=== PATIENT | female | born 1975 | race African-American/Black ===

== ENCOUNTER → 2017-10-08 00:51 | Emergency (ER) | payer OTHER ==
[~2017-10-08 00:51] MED LIST: HYDROmorphone INJ* 2 MG/ML CARPUJECT SYRINGE IV SLOW PU ONE; Metoclopramide IV* 5 MG/ML 2 ML VIAL IV ONE; NS 0.9% 1000 ML* 1,000 ML IV ONE
[2017-10-08 02:12] LABS: ABS Basophils 0 10^3/ul (0-0.2); ABS Eosinophils 0.2 10^3/ul (0-0.6); ABS Lymphocytes 2.1 10^3/ul (1.0-4.8); ABS Monocytes 0.7 10^3/ul (0-0.8); ABS Neutrophils 2.6 10^3/ul (1.5-7.7); ABS Nucleated RBC 0 10^3/ul; Eosinophil % 4.1 % (0-6); Hematocrit 34 % (35-47); Hemoglobin 11.1 g/dl (12.0-16.0); Lymphocyte % 36.4 % (25-47); Mean Corpuscular HGB Conc 33 g/dl (31-36); Mean Corpuscular Hemoglobin 24 pg (27-31); Mean Corpuscular Volume 75 fL (80-97); Mean Platelet Volume 7.7 um3 (7.4-10.4); Nucleated Red Blood Cells % 0.1; Platelet Count 301 10^3/ul (150-450); Red Blood Count 4.57 10^6/ul (4.0-5.4); Red Cell Distribution Width 17 % (10.5-15); White Blood Count 5.7 10^3/ul (3.5-10.8)
[2017-10-08 02:18] LABS: INR 0.99 (0.77-1.02)
[2017-10-08 02:29] LABS: EGFR Non-African American 64.5 (>60)
[2017-10-08 02:38] LABS: Urine Appearance Clear; Urine Blood Negative (Negative); Urine Color Straw; Urine Ketones Negative (Negative); Urine Protein Negative (Negative); Urine Specific Gravity 1.008 (1.010-1.030); Urine Urobilinogen Negative (Negative)
[2017-10-08 03:22] VITALS: BP 102/66
--- NOTE | 2017-10-08 03:38 | ED ---
Emerald Portillo Nilda, scribed for Dennis Palacios MD on 10/08/17 at 0131 . Abdominal Pain/Female - HPI Summary HPI Summary: This patient is a 42 year old F presenting to [facility] with a chief complaint of constant RUQ pain since 2.5 weeks ago which has worsened the past 3 nights, noting it wakes me up and makes me yelp. The patient rates the pain 6/10 in severity. Symptoms aggravated and alleviated by nothing. Pt states food does not worsen pain. Patient reports intermittent dizziness, YAP, and nausea, but denies vomiting, and shoulder pain. Pt states she was recovering from a cold weeks ago. Last BM 2 hours ago. PSHx , hernia repair, and tumor removal. - History of Current Complaint Chief Complaint: EDAbdPain Stated Complaint: ABD PAIN Time Seen by Provider: 10/08/17 01:20 Hx Obtained From: Patient Onset/Duration: Sudden Onset, Lasting Weeks, Still Present Timing: Constant Severity Currently: Moderate Pain Intensity: 6 Pain Scale Used: 0-10 Numeric Location: Discrete At: RUQ Radiates: No Aggravating Factor(s): Nothing Alleviating Factor(s): Nothing Associated Signs and Symptoms: Positive: Other: - intermittent dizziness, YAP, and nausea, but denies vomiting, and shoulder pain. Allergies/Adverse Reactions: Allergies Allergy/AdvReac Type Severity Reaction Status Date / Time erythromycin base Allergy Severe Anaphylatic Verified 10/08/17 00:58 Shock morphine Allergy Itching Verified 10/08/17 00:58 Penicillins AdvReac See Comment Verified 10/08/17 00:58 Home Medications: Home Medications Aspirin 81 mg CHEW TAB* [Aspirin Low Dose TAB*] 81 mg PO DAILY 10/08/17 [ History Confirmed 10/08/17] Cetirizine* [ZyrTEC 10 MG TAB*] 10 mg PO DAILY 10/08/17 [History Confirmed 10/08] Norethindrone [Norethindrone] 0.35 mg PO DAILY 10/08/17 [History Confirmed 10/08] Pantoprazole Sodium [Protonix] 20 mg PO DAILY 10/08/17 [History Confirmed ] PMH/Surg Hx/FS Hx/Imm Hx Endocrine/Hematology History: Reports: Other Endocrine/Hematological Disorders - parathyroid issues Denies: Hx Diabetes Cardiovascular History: Denies: Hx Hypertension History: Denies: Hx Renal Disease - Surgical History Surgery Procedure, Year, and Place: , hernia repair, tubal - Immunization History Date of Tetanus Vaccine: PT STATES UNSURE Date of Influenza Vaccine: NONE Infectious Disease History: No Infectious Disease History: Denies: Traveled Outside the [place] in Last 30 Days - Family History Known Family History: Positive: Diabetes - Social History Alcohol Use: None Hx Substance Use: No Substance Use Type: Reports: None Hx Tobacco Use: No Smoking Status (MU): Never Smoked Tobacco Review of Systems Positive: Abdominal Pain - RUQ, Nausea. Negative: Vomiting Positive: Other - shoulder pain Neurological: Other - dizziness Positive: Headache All Other Systems Reviewed And Are Negative: Yes Physical Exam - Summary Physical Exam Summary: VITAL SIGNS: Reviewed. GENERAL: Patient is a well-developed and nourished female who is lying comfortable in the stretcher. Patient is not in any acute respiratory distress. HEAD AND FACE: No signs of trauma. No ecchymosis, hematomas or skull depressions. No sinus tenderness. EYES: PERRLA, EOMI x 2, No injected conjunctiva, no nystagmus. EARS: Hearing grossly intact. Ear canals and tympanic membranes are within normal limits. MOUTH: Oropharynx within normal limits. NECK: Supple, trachea is midline, no adenopathy, no JVD, no carotid bruit, no c- spine tenderness, neck with full ROM. CHEST: Symmetric, no tenderness at palpation LUNGS: Clear to auscultation bilaterally. No wheezing or crackles. CVS: Regular rate and rhythm, S1 and S2 present, no murmurs or gallops appreciated. ABDOMEN: Soft, RUQ tenderness. No signs of distention. No rebound no guarding, and no masses palpated. Bowel sounds are normal. EXTREMITIES: FROM in all major joints, no edema, no cyanosis or clubbing. NEURO: Alert and oriented x 3. No acute neurological deficits. Speech is normal and follows commands. SKIN: Dry and warm Triage Information Reviewed: Yes Vital Signs On Initial Exam: Initial Vitals Temp Pulse Resp BP Pulse Ox 98.0 F 90 16 112/80 99 10/08/17 00:52 10/08/17 00:52 10/08/17 00:52 10/08/17 00:52 10/08/17 00:52 Vital Signs Reviewed: Yes Diagnostics - Vital Signs Vital Signs Temp Pulse Resp BP Pulse Ox 10/08/17 00:52 98.0 F 90 16 112/80 99 - Laboratory Result Diagrams: 10/08/17 01:55 10/08/17 01:55 Lab Statement: Any lab studies that have been ordered have been reviewed, and results considered in the medical decision making process. Re-Evaluation - Re-Evaluation First Eval Re-Evaluation Time: 03:05 Comment: reviewed labs with pt. Pt feels better. Abdominal Pain Fem Course/Dx - Course Course Of Treatment: 42 y/o c/o RUQ for 2.5 weeks. Exam reveals RUQ tenderness. No fever. Labs unremarkable. Pt will be D/C with Dx of abd pain and possible biliary colic. She was advised to f/u with PCP and recieve US abd to r/o gall stones. - Diagnoses Provider Diagnoses: Abdominal pain, Biliary colic symptom Discharge - Sign-Out/Discharge Documenting (check all that apply): Discharge - home - Discharge Plan Condition: Stable Disposition: HOME Patient Education Materials: Biliary Colic (ED), Acute Abdominal Pain (ED) Referrals: Viridiana Myers MD [Primary Care Provider] - 1 Day Additional Instructions: Follow up with your primary care physician tomorrow. Get ultrasound of abdomen to rule out gall stones. RETURN TO THE EMERGENCY DEPARTMENT FOR CHANGING OR WORSENING SYMPTOMS. The documentation as recorded by the Emerald blackwood Nilda accurately reflects the service I personally performed and the decisions made by me, Dennis Palacios MD.
== END | disposition home or self-care (01) ==
LOC: ED 00:51
DX: K80.50 Calculus of bile duct without cholangitis or cholecystitis without obstruction (principal); R10.11 Right upper quadrant pain; R42 Dizziness and giddiness; R51 Headache; R11.0 Nausea
CPT/HCPCS: 36415; 80053; 81003; 82150; 83690; 83735; 84702; 85025; 85610; 85730; 86140; 96374; 96375; 99282; J1170; J2765

== ENCOUNTER 2017-10-19 10:30 | Observation (INO) | payer OTHER ==
[2017-10-19] MEDS ORDERED: diPHENhydraMINE IV* 50 MG/ML 1 ml VIAL (BENADRYL) IV ONE ×2 (10:31→14:30)
[2017-10-19] MEDS ORDERED: HYDROmorphone INJ* 1 MG/ML CARPUJECT SYRINGE IV ONE ×2 (10:31→11:27)
[2017-10-19] MEDS ORDERED: Ondansetron INJ* 2 MG/ML VIAL IV ONE (10:31)
[2017-10-19] MEDS ORDERED: HYDROmorphone INJ* 2 MG/ML CARPUJECT SYRINGE ONE (10:43)
--- NOTE | 2017-10-19 10:48 | PN ---
Hospitalist Progress Note Date of Service: 10/19/17 CAT NOTE Ms Shah is a 42yo F who just received her second dose of IV Iron and developed severe right flank/chest pain, reason why CAT was called. On arrival at [facility] patient was in position in a recliner, writhing in pain. Her BP was 148/88 but due to her movements we were not able to get a good reading on the monitor. As she has h/o prior PE, not currently on anticoagulation, decision was made to transfer patient immediately to ED for further w/u. Patient care transferred to Dr. Díaz.
[2017-10-19 10:56] LABS: ABS Basophils 0 10^3/ul (0-0.2); ABS Eosinophils 0.1 10^3/ul (0-0.6); ABS Lymphocytes 2.6 10^3/ul (1.0-4.8); ABS Monocytes 0.6 10^3/ul (0-0.8); ABS Neutrophils 2.2 10^3/ul (1.5-7.7); ABS Nucleated RBC 0 10^3/ul; Eosinophil % 2.4 % (0-6); Hematocrit 35 % (35-47); Hemoglobin 11.2 g/dl (12.0-16.0); Lymphocyte % 46.8 % (25-47); Mean Corpuscular HGB Conc 32 g/dl (31-36); Mean Corpuscular Hemoglobin 24 pg (27-31); Mean Corpuscular Volume 76 fL (80-97); Mean Platelet Volume 7.9 um3 (7.4-10.4); Nucleated Red Blood Cells % 0.1; Platelet Count 310 10^3/ul (150-450); Red Blood Count 4.63 10^6/ul (4.0-5.4); Red Cell Distribution Width 17 % (10.5-15); White Blood Count 5.5 10^3/ul (3.5-10.8)
[2017-10-19 11:03] LABS: Urine Appearance Clear; Urine Blood 1+ (Negative); Urine Color Yellow; Urine Ketones Negative (Negative); Urine Protein Negative (Negative); Urine Urobilinogen Negative (Negative)
--- OUTSIDE RECORDS SUMMARY | 2017-10-19 11:11 | XMS REPORT ---
:1975 External Reference #:[id number] Author Organization [employer] Address [address] [address] Phone [phone] Care Team Providers Name Role Phone Viridiana Myers MD Primary Care Physician Unavailable Payers Type Date Identification Numbers Payment Provider Subscriber Commercial Policy Number: [id number] [employer] Kirstin Shah PayID: [id number] [address] [place] [address] Problems Description No Information Social History Type Date Description Comments Smoking Patient has never smoked Allergies, Adverse Reactions, Alerts Date Description Reaction Status Severity Comments 10/08/2017 Morphine burning active 10/08/2017 Penicillins not effective active 10/08/2017 Erythromycin Anaphylaxis active Medications Medication Date Status Form Strength Qnty SIG Indications Ordering Provider Aspir-[address] 81mg 1 by Unknown 000 mouth every day Zyrtec Allergy 0 Active Tablets 10mg 1 by Unknown 000 mouth every day Norethindrone 0 Active Tablets 0.35mg 1 by Unknown 000 mouth every day Pantoprazole [address] 20mg 1 by Unknown Sodium 000 mouth every day Vital Signs Date Vital Result Comment 10/08/2017 Height 61.5 inches 5'1.50" Weight 180.00 lb Heart Rate 76 /min BP Systolic 118 mmHg BP Diastolic 82 mmHg Respiratory Rate 16 /min Body Temperature 98.8 F BMI (Body Mass Index) 33.5 kg/m2 Results Description No Information Procedures Description No Information Plan of Care 10/08/2017 - Jose Mina, MDR10.11 Right upper quadrant painFollow up:after hida scan
[2017-10-19 11:14] LABS: EGFR Non-African American 64.5 (>60)
--- NOTE | 2017-10-19 11:50 | RAD ---
INDICATION: Right flank pain COMPARISON: September 26, 2014 TECHNIQUE: An AP portable view obtained at 1125 hours is submitted. FINDINGS: Bones/Soft Tissues: There are no acute bony findings. Cardiomediastinal: The cardiomediastinal silhouette is normal. Lungs: There are no infiltrates. Pleura: There are no pleural effusions. Other: None IMPRESSION: NO ACTIVE DISEASE.
[2017-10-19] MEDS ORDERED: Iohexol 350* (CONTRAST) 500 ML MDV IV ONE (12:31)
[2017-10-19] MEDS: NS 0.9% 1000 ML* 2,000 ML IV ONE (12:40)
--- NOTE | 2017-10-19 13:22 | RAD ---
INDICATION: Chest and flank pain. COMPARISON: CT of the abdomen and pelvis June 16, 2017; CT chest/abdomen/pelvis December 16, 2015 TECHNIQUE: CT angiographic source images were obtained from the thoracic inlet to the symphysis pubis following administration of intravenous contrast only. 100 mL Omnipaque 350 was utilized. Coronal and sagittal reconstructed images were acquired. CHEST FINDINGS: Neck/thyroid: The visualized neck to include the thyroid appear normal. Chest wall: There are no acute abnormalities of the bony thorax or chest wall. There is no supraclavicular, infraclavicular, or axillary lymphadenopathy. Lungs : There are no pulmonary parenchymal masses or infiltrates. The pulmonary interstitium appears normal. There are no endobronchial lesions. Cardiomediastinal structures: The heart is normal in size. There is no pericardial effusion. There is no evidence of aortic aneurysm or dissection. The pulmonary vessels appear normal. There is no mediastinal or hilar adenopathy. The esophagus appears normal. Pleura : There are no pleural-based masses or effusions. ABDOMINAL/PELVIC FINDINGS: Liver: The liver is normal in size. There are no masses. There is no ductal dilatation. Gallbladder: There are no calcified gallstones. There is no evidence of wall thickening or pericholecystic fluid. Spleen: The spleen is normal in size. There are no masses. Pancreas: There is no evidence of pancreatic mass or ductal dilatation. Adrenal glands: There is no evidence of adrenal mass. Kidneys: The kidneys are normal in size and position. There are prompt nephrograms and there is prompt excretion bilaterally. There are no renal parenchymal masses. There is no evidence of nephrolithiasis. Adenopathy: There is no evidence of adenopathy by size criteria. Fluid collections: There is trace free fluid in the cul-de-sac. Vessels:The aorta and IVC appear normal GI tract: There are no acute CT bowel findings. There is no obstruction. The stomach and small bowel appear normal. The lower GI tract is normal. The cecum, ileocecal valve, and terminal ileum appear normal. Evaluation appendix is mildly limited. No definitive appendiceal abnormalities are seen. Pelvic organs: The uterus and adnexa appear normal Bladder: There are no bladder masses. Abdominal and pelvic soft tissues: The extraperitoneal abdominal and pelvic soft tissues appear normal.. Osseous structures: There are no acute osseous findings. IMPRESSION: NO ACUTE CT FINDINGS OF THE CHEST. NO EVIDENCE OF ANEURYSM, DISSECTION, OR PULMONARY EMBOLUS. NO DEFINITIVE MASS OR INFLAMMATORY CHANGES IN THE ABDOMEN OR PELVIS
[2017-10-19] MEDS ORDERED: oxyCODONE/Acetamin 5/325 MG* TAB PO PRN (14:43)
[2017-10-19] MEDS ORDERED: Acetaminophen TAB* 325 MG PO PRN (14:43)
[2017-10-19] MEDS ORDERED: Ondansetron INJ* 2 MG/ML VIAL IV PRN (14:43)
[2017-10-19] MEDS ORDERED: Magnesium Hydroxide LIQ* 30 ML UDC PO PRN (14:43)
--- NOTE | 2017-10-19 16:13 | ED ---
Jake Portillo Thomas, scribed for Jamal Shi MD on 10/19/17 at 1039 . Abdominal Pain/Female - HPI Summary HPI Summary: The patient is a 42 year old female brought over from the Heme/Onc department. She complains of severe sudden-onset right flank pain that began 30 minutes after an iron infusion. - History of Current Complaint Stated Complaint: CAT CALL Time Seen by Provider: 10/19/17 10:31 Hx Obtained From: Patient Onset/Duration: Sudden Onset, Lasting Minutes, Still Present Timing: Constant Severity Currently: Severe Location: Flank - right Aggravating Factor(s): Nothing Alleviating Factor(s): Nothing Associated Signs and Symptoms: Positive: Negative - epistaxis Allergies/Adverse Reactions: Allergies Allergy/AdvReac Type Severity Reaction Status Date / Time erythromycin base Allergy Severe Anaphylatic Verified 10/08/17 00:58 Shock morphine Allergy Intermediate Itching Verified 10/08/17 07:16 Penicillins AdvReac Mild See Comment Verified 10/08/17 07:16 PMH/Surg Hx/FS Hx/Imm Hx Endocrine/Hematology History: Reports: Other Endocrine/Hematological Disorders - parathyroid issues Denies: Hx Diabetes Cardiovascular History: Denies: Hx Hypertension History: Denies: Hx Renal Disease - Surgical History Surgery Procedure, Year, and Place: , hernia repair, tubal - Immunization History Date of Tetanus Vaccine: PT STATES UNSURE Date of Influenza Vaccine: NONE - Family History Known Family History: Positive: Diabetes - Social History Alcohol Use: None Hx Substance Use: No Substance Use Type: Reports: None Hx Tobacco Use: No Smoking Status (MU): Never Smoked Tobacco Review of Systems Negative: Epistaxis Positive: flank pain - right All Other Systems Reviewed And Are Negative: Yes Physical Exam - Summary Physical Exam Summary: General: well-appearing, no pain distress Skin: warm, color reflects adequate perfusion, dry Head: normal Eyes: EOMI, TEENA ENT: normal Neck: supple, nontender Respiratory: CTA, breath sounds present Cardiovascular: RRR Abdomen: soft, nontender Bowel: present Musculoskeletal: normal, strength/ROM intact Neurological: normal, sensory/motor intact, A&O x3 Psychological: affect/mood appropriate Triage Information Reviewed: Yes Vital Signs On Initial Exam: Initial Vitals BP 120/56 10/19/17 10:41 Vital Signs Reviewed: Yes Diagnostics - Vital Signs Vital Signs Temp Pulse Resp BP Pulse Ox 10/19/17 14:30 68 11 108/71 99 10/19/17 14:12 74 100/70 100 10/19/17 14:00 77 17 100 10/19/17 13:30 75 15 100 10/19/17 13:05 87 21 100 10/19/17 12:30 78 23 107/59 100 10/19/17 12:00 88 20 109/71 100 10/19/17 11:56 87 26 114/74 98 10/19/17 11:37 24 10/19/17 11:30 181/169 10/19/17 11:05 99 10/19/17 11:00 116 22 167/118 99 10/19/17 10:51 99.1 F 103 20 151/110 98 10/19/17 10:46 30 10/19/17 10:43 108 21 98 10/19/17 10:41 120/56 - Laboratory Lab Results: Lab Results 10/19/17 10/19/17 10/19/17 Range/Units 10:42 10:45 10:45 WBC (3.5-10.8) 10^3/ul RBC (4.0-5.4) 10^6/ul Hgb (12.0-16.0) g/dl Hct (35-47) % MCV (80-97) fL MCH (27-31) pg MCHC (31-36) g/dl RDW (10.5-15) % Plt Count (150-450) 10^3/ul MPV (7.4-10.4) um3 Neut % (Auto) (38-83) % Lymph % (Auto) (25-47) % [place] % (Auto) (0-7) % Eos % (Auto) (0-6) % Baso % (Auto) (0-2) % Absolute Neuts (auto) (1.5-7.7) 10^3/ul Absolute Lymphs (auto) (1.0-4.8) 10^3/ul Absolute Monos (auto) (0-0.8) 10^3/ul Absolute Eos (auto) (0-0.6) 10^3/ul Absolute Basos (auto) (0-0.2) 10^3/ul Absolute Nucleated RBC 10^3/ul Nucleated RBC % INR (Anticoag Therapy) 1.00 (0.77-1.02) APTT 38.3 H (26.0-36.3) seconds D-Dimer, Quantitative < 200 (Less Than 230) ng/mL Sodium (139-145) mmol/L Potassium (3.5-5.0) mmol/L Chloride (101-111) mmol/L Carbon Dioxide (22-32) mmol/L Anion Gap (2-11) mmol/L BUN (6-24) mg/dL Creatinine (0.51-0.95) mg/dL Est GFR ( Amer) (>60) Est GFR (Non-Af Amer) (>60) BUN/Creatinine Ratio (8-20) Glucose (70-100) mg/dL Lactic Acid (0.5-2.0) mmol/L Calcium (8.6-10.3) mg/dL Magnesium (1.9-2.7) mg/dL Total Bilirubin (0.2-1.0) mg/dL AST (13-39) U/L ALT (7-52) U/L Alkaline Phosphatase (34-104) U/L Total Creatine Kinase (10-223) U/L CK-MB (CK-2) (0.6-6.3) ng/mL Troponin I (<0.04) ng/mL C-Reactive Protein (< 5.00) mg/L B-Natriuretic Peptide 7 ( - 100) pg/mL Total Protein (6.4-8.9) g/dL Albumin (3.2-5.2) g/dL Globulin (2-4) g/dL Albumin/Globulin Ratio (1-3) Lipase (11.0-82.0) U/L TSH (0.34-5.60) mcIU/mL Beta HCG, Quant mIU/mL Urine Color Yellow Urine Appearance Clear Urine pH 5.0 (5-9) Ur Specific [place] 1.010 (1.010-1.030) Urine Protein Negative (Negative) Urine Ketones Negative (Negative) Urine Blood 1+ A (Negative) Urine Nitrate Negative (Negative) Urine Bilirubin Negative (Negative) Urine Urobilinogen Negative (Negative) Ur Leukocyte Esterase Negative (Negative) Urine WBC (Auto) Absent (Absent) Urine RBC (Auto) Trace(0-2/hpf) (Absent) Ur Squamous Epith Cells Present A (Absent) Urine Bacteria Absent (Absent) Urine Glucose Negative (Negative) 10/19/17 10/19/17 10/19/17 Range/Units 10:45 10:45 10:45 WBC 5.5 (3.5-10.8) 10^3/ul RBC 4.63 (4.0-5.4) 10^6/ul Hgb 11.2 L (12.0-16.0) g/dl Hct 35 (35-47) % MCV 76 L (80-97) fL MCH 24 L (27-31) pg MCHC 32 (31-36) g/dl RDW 17 H (10.5-15) % Plt Count 310 (150-450) 10^3/ul MPV 7.9 (7.4-10.4) um3 Neut % (Auto) 39.7 (38-83) % Lymph % (Auto) 46.8 (25-47) % [place] % (Auto) 10.6 H (0-7) % Eos % (Auto) 2.4 (0-6) % Baso % (Auto) 0.5 (0-2) % Absolute Neuts (auto) 2.2 (1.5-7.7) 10^3/ul Absolute Lymphs (auto) 2.6 (1.0-4.8) 10^3/ul Absolute Monos (auto) 0.6 (0-0.8) 10^3/ul Absolute Eos (auto) 0.1 (0-0.6) 10^3/ul Absolute Basos (auto) 0 (0-0.2) 10^3/ul Absolute Nucleated RBC 0 10^3/ul Nucleated RBC % 0.1 INR (Anticoag Therapy) (0.77-1.02) APTT (26.0-36.3) seconds D-Dimer, Quantitative (Less Than 230) ng/mL Sodium 137 L (139-145) mmol/L Potassium 4.3 (3.5-5.0) mmol/L Chloride 108 (101-111) mmol/L Carbon Dioxide 24 (22-32) mmol/L Anion Gap 5 (2-11) mmol/L BUN 10 (6-24) mg/dL Creatinine 0.95 (0.51-0.95) mg/dL Est GFR ( Amer) 83.0 (>60) Est GFR (Non-Af Amer) 64.5 (>60) BUN/Creatinine Ratio 10.5 (8-20) Glucose 93 (70-100) mg/dL Lactic Acid 0.9 (0.5-2.0) mmol/L Calcium 9.0 (8.6-10.3) mg/dL Magnesium 1.9 (1.9-2.7) mg/dL Total Bilirubin 0.40 (0.2-1.0) mg/dL AST 15 (13-39) U/L ALT 11 (7-52) U/L Alkaline Phosphatase 40 (34-104) U/L Total Creatine Kinase 204 (10-223) U/L CK-MB (CK-2) 0.6 (0.6-6.3) ng/mL Troponin I 0.00 (<0.04) ng/mL C-Reactive Protein < 1.00 (< 5.00) mg/L B-Natriuretic Peptide ( - 100) pg/mL Total Protein 7.5 (6.4-8.9) g/dL Albumin 4.2 (3.2-5.2) g/dL Globulin 3.3 (2-4) g/dL Albumin/Globulin Ratio 1.3 (1-3) Lipase 21 (11.0-82.0) U/L TSH 4.34 (0.34-5.60) mcIU/mL Beta HCG, Quant < 0.60 mIU/mL Urine Color Urine Appearance Urine pH (5-9) Ur Specific [place] (1.010-1.030) Urine Protein (Negative) Urine Ketones (Negative) Urine Blood (Negative) Urine Nitrate (Negative) Urine Bilirubin (Negative) Urine Urobilinogen (Negative) Ur Leukocyte Esterase (Negative) Urine WBC (Auto) (Absent) Urine RBC (Auto) (Absent) Ur Squamous Epith Cells (Absent) Urine Bacteria (Absent) Urine Glucose (Negative) Result Diagrams: 10/19/17 10:45 10/19/17 10:45 Lab Statement: Any lab studies that have been ordered have been reviewed, and results considered in the medical decision making process. - Radiology CXR Xray Interpretation: No Acute Changes - IMPRESSION: No active disease. Dr. Shi has reviewed this report. Radiology Interpretation Completed By: Radiologist - CT CT CT Interpretation: No Acute Changes - IMPRESSION: NO ACUTE CT FINDINGS OF THE CHEST. NO EVIDENCE OF ANEURYSM, DISSECTION, OR PULMONARY EMBOLUS. NO DEFINITIVE MASS OR INFLAMMATORY CHANGES IN THE ABDOMEN OR PELVIS. Dr. Shi has reviewed this report. CT Interpretation Completed By: Radiologist - EKG 10:37 Cardiac Rate: NL EKG Rhythm: Sinus Rhythm - at 94 BPM Ectopy: None EKG Interpretation: Flippped T waves in III. Flatted T waves in AVF. Abdominal Pain Fem Course/Dx - Course Course Of Treatment: DISCUSSED RESULTS WITH PATIENT. STILL IN PAIN IN ED. DISCUSSED WITH DR ALLEN WHO WILL ADMIT. - Diagnoses Provider Diagnoses: Right flank pain, Right-sided chest pain - Provider Notifications Discussed Care Of Patient With: Albino Allen Time Discussed With Above Provider: 14:00 Instructed by Provider To: Admit As Inpatient Discharge - Sign-Out/Discharge Documenting (check all that apply): Discharge - Discharge Plan Condition: Stable Disposition: ADMITTED TO [facility] - Billing Disposition and Condition Condition: STABLE Disposition: [facility] The documentation as recorded by the Jake blackwood Thomas accurately reflects the service I personally performed and the decisions made by , Jamal Shi MD.
[2017-10-19] MEDS ORDERED: traMADol TAB* 50 MG PO PRN (17:20)
[2017-10-19] MEDS ORDERED: Cyclobenzaprine TAB* 10 MG PO PRN (19:05)
[2017-10-19] MEDS ORDERED: Zolpidem TAB* 10 MG PO SCH (21:00)
--- NOTE | 2017-10-19 22:23 | HP ---
HISTORY AND PHYSICAL: DATE OF ADMISSION: 10/19/17 CHIEF COMPLAINT: Right-sided shoulder to flank pain. IDENTIFICATION: A 42-year-old female with history of pulmonary embolus, receiving IV iron therapy. HISTORY OF PRESENT ILLNESS: Ms. Shah is a 42-year-old female, well known to our practice with iron deficiency anemia. She has not tolerated oral iron and was brought in today for her second treatment of Ferrlecit. She received the first infusion without difficulty. The second infusion was completed without difficulty. She was in the observation period and 30 minutes after completing the infusion, she developed acute right-sided shoulder pain. The pain was 10/ 10 in intensity and she was literally curled over in pain. She was weak and hypoxic after holding her breath because of a spasm. Vital signs remained stable. Suspected drug reaction. She was given Solu-Medrol 125 mg and then Demerol 25 mg without effect. Denied nausea or vomiting. She was reporting shortness of breath. Denied any dizziness, tingling in the hands and feet. CAT team was called and she was brought to the emergency room. She was given additional milligram of Dilaudid and an additional 2 mg of Dilaudid IV. That did improve her pain. Went down to 4 to 5/10. She had a CT scan of the chest, abdomen, and pelvis to look for pulmonary embolus as well as dissection or an acute vascular event. The CT was negative. It was done with contrast, so we did not evaluate for kidney stones. She had blood work in the emergency room including a troponin that was negative. She had P33 and a CBC that was all essentially unremarkable. Contrast scan was done to evaluate for kidney stones. She did have urine that showed +1 blood. While the pain had improved somewhat in the emergency room, she did not feel it was possible to go home, so she is going to be admitted overnight for observation. PAST MEDICAL HISTORY: 1. Endometriosis. 2. Gastroparesis. 3. Pulmonary embolus in 1999 and on oral control pills, 5 months of Coumadin and then stopped. 4. Pituitary adenoma. PAST SURGICAL HISTORY: 1. . 2. Hernia repair. 3. Lipoma removed. 4. Tonsillectomy. MEDICATIONS: 1. Aspirin 81 mg a day. 2. Multivitamin. 3. Pantoprazole. 4. Zyrtec. 5. Norethindrone. ALLERGIES: ERYTHROMYCIN AND MORPHINE causes hives. SOCIAL HISTORY: She is . Four biologic children and three adopted children. Works at [employer]. No smoking. No drinking. REVIEW OF SYSTEMS: As noted above. She does have a history of some chronic abdominal pain and has had multiple GI evaluations in the past. Otherwise, 14- point review of systems was negative. PHYSICAL EXAMINATION VITAL SIGNS: In the emergency room, BP 112/68, pulse 63, saturation 99%, temperature 98.4. HEENT: Mucosa moist. No lesions. No lymphadenopathy. LUNGS: Clear to auscultation. Chest was tender to palpation during her episode of severe pain, improved later. HEART: Regular rate and rhythm. S1, S2. No murmurs, rubs, or gallops. ABDOMEN: Nontender, nondistended. Good bowel sounds. EXTREMITIES: No clubbing, cyanosis or edema. LABORATORY DATA: As noted above. ASSESSMENT AND PLAN: A 42-year-old female with history of chronic abdominal pain, iron deficiency anemia, and pulmonary embolus in the past, who presented with acute right-sided chest pain. She had decompensation in the clinic and there is concern for an acute vascular event. Subsequent evaluation in the emergency room was essentially negative. Pain subsided with Dilaudid. Differential diagnosis includes drug reaction to iron as the most likely cause, muscle or back spasm, there is an underlying chronic pain syndrome. 1. At this point, she will come into the hospital overnight and be monitored with plans to go home tomorrow morning barring additional events. Can be discharged on Tramadol and/or Flexeril 2. No additional iron therapy 3. H/o PE and on progesterone only BC for endometriosis. Will continue with [facility]SA. [id number]/[facility] #: [id number] [facility]ENTERLukasz
[2017-10-20 07:49] VITALS: BP 115/63
[2017-10-20] MEDS ORDERED: Aspirin 81 mg CHEW TAB* 81 MG TAB.CHEW PO SCH (09:00)
[2017-10-20] MEDS ORDERED: Norethindrone (NF) 0.35 MG TAB PO SCH (09:00)
--- NOTE | 2017-10-20 10:00 | PN ---
Progress Note - Progress Note Date of Service: 10/27/17 SOAP: Subjective: []Better today but still some pain. Slept well overnight. Was due for Hida scan today. No nausea. Acetaminophen (Tylenol Tab*) 650 mg PO Q4H PRN PRN Reason: FEVER/PAIN Aspirin (Aspirin 81 Mg Chew Tab*) 81 mg PO DAILY [facility] Last Admin: 10/20/17 09:08 Dose: 81 mg Cyclobenzaprine HCl (Flexeril Tab*) 10 mg PO TID PRN PRN Reason: PAIN Last Admin: 10/19/17 19:54 Dose: 10 mg Magnesium Hydroxide (Milk Of Marvin Liq*) 30 ml PO Q4H PRN PRN Reason: CONSTIPATION Norethindrone (Suki (Nf)) 0.35 mg PO DAILY [facility] Last Admin: 10/20/17 09:08 Dose: Not Given Ondansetron HCl (Zofran Inj*) 4 mg IV Q4H PRN PRN Reason: NAUSEA/VOMITING Last Admin: 10/19/17 19:53 Dose: 4 mg Oxycodone/Acetaminophen (Percocet 5/325 Tab*) 1 tab PO Q4H PRN PRN Reason: Pain Tramadol HCl (Ultram*) 50 mg PO Q6H PRN PRN Reason: PAIN Last Admin: 10/19/17 18:14 Dose: 50 mg Zolpidem Tartrate (Ambien Tab*) 10 mg PO BEDTIME [facility] Last Admin: 10/19/17 20:53 Dose: 10 mg Objective: [] Vital Signs Temp Pulse Resp BP Pulse Ox 98.1 F 71 16 115/63 98 10/20/17 07:26 10/20/17 07:26 10/20/17 07:26 10/20/17 07:26 10/20/17 07:26 HEENT - negative CTA RRR S1S2 Stills some pain to tenderness, palpation right mid T spine. ABD: +BS NT ND and no [facility] Neuro: non focal Assessment: []Appears to have had acute muscle spasm and/or drug reaction to IV iron. Improved today but some residual pain. Flexeril worked better then Tramadol last night. Will send out on Felxeril prn Plan: []1. Discharge home today 2. Follow up 4-6 week in clinic and will re-check CBC 3. Follow up PCP 4. No additional IV iron.
--- NOTE | 2017-10-20 12:55 | RAD ---
INDICATION: Right upper quadrant pain COMPARISON: CT October 19, 2017 TECHNIQUE: Following the administration of 6.2 millicuries of technetium 99m mebrofenin, serial, static, anterior images of the abdomen were obtained at 5 minute increments for a period of one hour. The images were repeated following intravenous administration of 1.63 micrograms of cholecystokinin. FINDINGS: There is prompt uptake of radiopharmaceutical within the liver indicating normal hepatic function. There is prompt visualization of the gallbladder and small bowel indicating patency of the cystic and common ducts. The gallbladder ejection fraction is calculated at 79 percent. This is within normal limits. A normal gallbladder ejection fraction is typically greater than 50%. IMPRESSION: NORMAL STUDY.
--- NOTE | 2017-10-20 14:46 | DS ---
DISCHARGE SUMMARY: DATE OF ADMISSION: 10/19/17 DATE OF DISCHARGE: 10/20/17 ADDENDUM: This is an addendum to history and physical from last night, 23-hour OBV admission. HOSPITAL COURSE: Please see history and physical for details of presentation. She was admitted overnight and then pain subsided. She did receive tramadol, which did not seem to help and then Flexeril 10 mg, which improved her pain. This morning, she had some residual right-sided pain, but it is slowly getting better. Differential diagnosis is acute muscle spam and/or drug reaction to IV iron. The plan will be to discharge on her previous home medications with the addition of Flexeril 10 mg q.8 p.r.n. for pain. DISCHARGE MEDICATIONS: 1. Aspirin 81 mg a day. 2. Multivitamin. 3. Pantoprazole 40 mg a day. 4. Progesterone-only control, norethindrone. 5. Zyrtec p.r.n. SCANS PENDING: She was due for HIDA scan today as an outpatient, we will have the scan done before she goes on today. FOLLOWUP: 1. Will return to our clinic in 4 to 6 weeks with repeat CBC to evaluate iron deficiency. 2. Follow up with PCP for residual back pain, spasm. 3. Follow up with Dr. Vicente for the HIDA scan being done today. 4. Flexeril, sent to her pharmacy. [id number]/[facility] #: [id number] MTDD
== END 2017-10-20 14:40 | disposition home or self-care (01) ==
LOC: ED 10:30 → MED 14:38 → INTOOBSV 14:38
PROVIDERS: ADMIT Internal Medicine Hematology & Oncology; ATTEND Internal Medicine Hematology & Oncology
DX: R10.84 Generalized abdominal pain (principal); R07.9 Chest pain, unspecified; M62.838 Other muscle spasm; Z86.711 Personal history of pulmonary embolism; Z86.39 Personal history of other endocrine, nutritional and metabolic disease; Z79.82 Long term (current) use of aspirin; D50.9 Iron deficiency anemia, unspecified
CPT/HCPCS: 36415; 71045; 71275; 74177; 78227; 80053; 81003; 81015; 82550; 82553; 83605; 83690; 83735; 83880; 84443; 84484; 84702; 85025; 85379; 85610; 85730; 86140; 87040; 93005; 96374; 96375; 99217; 99219; 99285; A9270-GY; A9537; J1170; J1200; J2405; J2805; Q9967

== ENCOUNTER 2019-05-08 20:43 | Emergency (ER) | payer SELFPAY ==
[2019-05-08 21:15] LABS: ABS Eosinophils 0.2 10^3/ul (0-0.6); ABS Lymphocytes 2.4 10^3/ul (1.0-4.8); ABS Monocytes 0.8 10^3/ul (0-0.8); ABS Neutrophils 2.9 10^3/ul (1.5-7.7); Eosinophil % 2.6 %; Hematocrit 32 % (35-47); Hemoglobin 10.5 g/dL (12.0-16.0); Lymphocyte % 37.6 %; Mean Corpuscular HGB Conc 33 g/dL (31-36); Mean Corpuscular Hemoglobin 25 pg (27-31); Mean Corpuscular Volume 75 fL (80-97); Mean Platelet Volume 7.7 fL (7.4-10.4); Nucleated Red Blood Cells % 0.4; Platelet Count 274 10^3/uL (150-450); Red Blood Count 4.28 10^6 /uL (3.70-4.87); Red Cell Distribution Width 16 % (10-15); White Blood Count 6.3 10^3/uL (3.5-10.8)
[2019-05-08] MEDS ORDERED: Iohexol 350* (CONTRAST) 500 ML MDV IV ONE (21:15)
--- NOTE | 2019-05-08 21:20 | ED ---
Abdominal Pain/Female - HPI Summary HPI Summary: Pt is a 44 y/o F presenting to the ED with a chief complaint of pain in her abdomen. She states was riding in her car for about 20 minutes sitting in her seat when she had a warm sensation through her mid-epigastric down to her stomach, which developed into feeling like she needed to have a bowel movement, then it came back up through her mid-epigastric region. The pain has been waxing /waning, she had episodes of numbness in her arms, then legs, then shaking throughout her body. She developed SOB, and notes she has recent dx of PNA. The pain runs through her abd and down the L-side of her body. Pt states she is agreeable with getting a CT with contrast before testing her kidney function, and denies hx of kidney issues. Medications reviewed. Allergies noted. - History of Current Complaint Chief Complaint: EDShortnessOfBreath Stated Complaint: SOB PER PT FRIEND Time Seen by Provider: 05/08/19 20:47 Hx Obtained From: Patient Onset/Duration: Sudden Onset, Lasting Hours, Still Present Timing: Hours Severity Initially: Mild Severity Currently: Severe Pain Intensity: 0 Location: Epigastric Radiates: Yes Radiates to: LLQ, RLQ Character: Burning, Cramping Aggravating Factor(s): Nothing Alleviating Factor(s): Nothing Associated Signs and Symptoms: Positive: Negative Allergies/Adverse Reactions: Allergies Allergy/AdvReac Type Severity Reaction Status Date / Time erythromycin base Allergy Severe Anaphylatic Verified 05/08/19 20:47 Shock morphine Allergy Intermediate Itching Verified 05/08/19 20:47 Penicillins AdvReac Mild See Comment Verified 05/08/19 20:47 PMH/Surg Hx/FS Hx/Imm Hx Previously Healthy: Yes Endocrine/Hematology History: Reports: Other Endocrine/Hematological Disorders - parathyroid issues Denies: Hx Diabetes Cardiovascular History: Denies: Hx Hypertension History: Denies: Hx Renal Disease Sensory History: Reports: Hx Contacts or Glasses Denies: Hx Hearing Aid Opthamlomology History: Reports: Hx Contacts or Glasses - Surgical History Surgery Procedure, Year, and Place: , hernia repair, tubal - Immunization History Date of Tetanus Vaccine: PT STATES UNSURE Date of Influenza Vaccine: NONE Infectious Disease History: No Infectious Disease History: Denies: Traveled Outside the [place] in Last 30 Days - Family History Known Family History: Positive: Diabetes - Social History Alcohol Use: None Hx Substance Use: No Substance Use Type: Reports: None Hx Tobacco Use: No Smoking Status (MU): Never Smoked Tobacco Review of Systems Positive: Shortness Of Breath Positive: Abdominal Pain Neurological: Other - shaking Positive: Numbness All Other Systems Reviewed And Are Negative: Yes Physical Exam - Summary Physical Exam Summary: Constitutional: Well-developed, Well-nourished, Alert. Pt writhing in pain on bed. Skin: Warm, Dry HENT: Normocephalic; Atraumatic Eyes: Conjunctiva normal Neck: Musculoskeletal ROM normal neck. (-) JVD, (-) Stridor, (-) Tracheal deviation Cardio: Rhythm regular, rate normal, Heart sounds normal; Intact distal pulses; Radial pulses are 2+ and symmetric. (-) Murmur Pulmonary/Chest wall: Effort normal. (-) Respiratory distress, (-) Wheezes, (-) Rales Abd: Soft, (-) tenderness, (-) Distension, (-) Guarding, (-) Rebound Musculoskeletal: (-) Edema Lymph: (-) Cervical adenopathy Neuro: Alert, Oriented x3 Psych: Mood and affect Normal Triage Information Reviewed: Yes Vital Signs On Initial Exam: Initial Vitals Temp Pulse Resp BP Pulse Ox 97 F 111 27 152/86 98 05/08/19 20:45 05/08/19 20:45 05/08/19 20:45 05/08/19 20:45 05/08/19 20:45 Vital Signs Reviewed: Yes Procedures - Sedation Patient Received Moderate/Deep Sedation with Procedure: No Diagnostics - Vital Signs Vital Signs Temp Pulse Resp BP Pulse Ox 05/08/19 21:00 102 100 05/08/19 20:49 108 21 98 05/08/19 20:45 97 F 112 21 152/86 99 - Laboratory Result Diagrams: 05/08/19 21:09 05/08/19 21:09 Lab Statement: Any lab studies that have been ordered have been reviewed, and results considered in the medical decision making process. - CT CT C/A/P CT Interpretation Completed By: Radiologist Summary of CT Findings: CT Chest. 1. Anterior mediastinal induration which is nonspecific but may reflect some residual thymic tissue but is slightly increased since 10/19/2017. 2. No central pulmonary embolism is identified. 3. Motion and/or beam hardening artifact precludes detailed evaluation of the ascending thoracic aorta and subtle aortic dissection is not excluded on this basis although no gross or obvious dissection is seen. Not grossly ruled in does not mean ruled out. CT A/P. 1. There is borderline distention of the stomach which in view of a contracted gallbladder likely reflects recent ingestion. 2. Otherwise negative CTA abdomen/pelvis. No abnormal aortic aneurysm or dissection is seen. ED physician has reviewed this report. - EKG 2048 Cardiac Rate: Tachycardia - 107bpm EKG Rhythm: Sinus Tachycardia ST Segment: Normal Ectopy: None Summary of EKG Findings: EKG at 2048 shows sinus tachycardia at 107bpm with T- wave inversion in lead III and no STEMI. ED physician has reviewed and interpreted this report. Re-Evaluation - Re-Evaluation 1st re-eval Re-Evaluation Time: 23:19 Change: Improved Comment: Pt ambulating. Abdominal Pain Fem Course/Dx - Course Course Of Treatment: Patient is here with this sensation of flushing in her abdomen that went into her chest and then her legs. She had an associated sensation of needing to have a bowel movement during this. Patient also had left-sided tingling. Given patient's traveling symptoms, neurologic symptoms, patient was sent immediately to the CT scanner to rule out dissection. Patient did not have a dissection on CTA. Patient had blood work performed which was grossly unremarkable. Patient had normal neurologic exam and is able ambulate. Patient is discharged with PCP follow-up. - Diagnoses Provider Diagnoses: Tingling, Panic reaction Discharge ED - Sign-Out/Discharge Documenting (check all that apply): Patient Departure - Discharge Plan Condition: Stable Disposition: HOME Referrals: Viridiana Myers MD [Primary Care Provider] - Additional Instructions: Please follow up with your primary care provider within the next 1-3 days. Return to the emergency department with any new or worsening symptoms. - Billing Disposition and Condition Condition: STABLE Disposition: Home - Attestation Statements Document Initiated by Scribe: Yes Documenting Scribe: Tiffanie Del Toro Provider For Whom Scribe is Documenting (Include Credential): Bear Bowen MD. Scribe Attestation: Tiffanie Portillo, scribed for Bear Bowen MD. on 05/08/19 at 2341. Scribe Documentation Reviewed: Yes Provider Attestation: The documentation as recorded by the scribe, Tiffanie Del Toro accurately reflects the service I personally performed and the decisions made by me, Bear Bowen MD. Status of Scribe Document: Viewed
[2019-05-08 21:32] LABS: ALT 15 U/L (7-52); AST 18 U/L (13-39); Albumin 4.1 g/dL (3.2-5.2); Albumin/Globulin Ratio 1.5 (1-3); Alkaline Phosphatase 41 U/L (34-104); Anion Gap 10 mmol/L (2-11); BUN/Creatinine Ratio 9.4 (8-20); Blood Urea Nitrogen 10 mg/dL (6-24); CO2 Carbon Dioxide 22 mmol/L (22-32); Calcium 9.5 mg/dL (8.6-10.3); Chloride 103 mmol/L (101-111); EGFR African American 68.1 (>60); EGFR Non-African American 56.3 (>60); Globulin 2.8 g/dL (2-4); Glucose 94 mg/dL (70-100); Potassium 3.8 mmol/L (3.5-5.0); Sodium 135 mmol/L (135-145); Total Protein 6.9 g/dL (6.4-8.9)
[2019-05-08 21:39] LABS: HCG Pregnancy < 0.60 mIU/mL
[2019-05-08 21:44] LABS: Urine Appearance Cloudy; Urine Bilirubin Negative (Negative); Urine Blood Negative (Negative); Urine Color Yellow; Urine Glucose Negative (Negative); Urine Ketones Negative (Negative); Urine Nitrite Negative (Negative); Urine Protein Negative (Negative); Urine Specific Gravity 1.012 (1.010-1.030); Urine Urobilinogen Negative (Negative)
[2019-05-08] MEDS ORDERED: Iodixanol 320 (CONTRAST) 100 ML SDV IV ONE (22:06)
--- OUTSIDE RECORDS SUMMARY | 2019-05-08 22:49 | XMS REPORT | Continuity of Care Document ---
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 [phone] Problems Description No Information Available Social History Type Date Description Comments Sex Unknown ETOH Use Never used alcohol Tobacco Use Start: Unknown Patient has never smoked Smoking Status Reviewed: 03/15/19 Patient has never smoked Allergies, Adverse Reactions, Alerts Active Allergies Reaction Severity Comments Date Erythromycin 03/15/2019 Penicillin 03/15/2019 Morphine 03/15/2019 Medications Active Medications SIG Qnty Indications Ordering Provider Date Zyrtec Allergy take one tablet Unknown 10mg by mouth in the Capsules evening Immunizations Description No Information Available Vital Signs Description No Information Available Results Description No Information Available Procedures Description No Information Available Medical Devices Description No Information Available Encounters Type Date Location Provider Dx Diagnosis Office Visit 03/15/2019 Main Office Thien Schmid, OD H10.021 Other mucopurulent 9:15a conjunctivitis, right eye Assessments Date Code Description Provider 03/15/2019 H10.021 Other mucopurulent conjunctivitis, right eye Thien Schmid, JACKIE Plan of Treatment 03/15/2019 - Thien Schmid, ODH10.021 Other mucopurulent conjunctivitis, right eyeFollow up:3 days f/u, sooner PRN Functional Status Description No Information Available Mental Status Description No Information Available Referrals Description No Information Available
[2019-05-08 23:41] VITALS: BP 102/69
== END 2019-05-08 23:40 | disposition home or self-care (01) ==
LOC: ED 20:43
DX: F41.0 Panic disorder [episodic paroxysmal anxiety] (principal); R20.2 Paresthesia of skin; Z88.1 Allergy status to other antibiotic agents; Z88.5 Allergy status to narcotic agent; Z88.0 Allergy status to penicillin
CPT/HCPCS: 36415; 71275; 74174; 80053; 81003; 84484; 84702; 85025; 93005; 99282; Q9967

== ENCOUNTER 2022-08-09 18:54 | Inpatient (IN) ==
[2022-08-09 20:09] LABS: ABS Eosinophils 0.1 10^3/ul (0-0.6); ABS Lymphocytes 1.4 10^3/ul (1.0-4.8); ABS Monocytes 0.6 10^3/ul (0-0.8); ABS Neutrophils 4.8 10^3/ul (1.5-7.7); Eosinophil % 1.6 %; Hematocrit 34 % (35-47); Hemoglobin 10.7 g/dL (12.0-16.0); Mean Corpuscular HGB Conc 31 g/dL (31-36); Mean Corpuscular Hemoglobin 23 pg (27-31); Mean Corpuscular Volume 74 fL (80-97); Mean Platelet Volume 7.8 fL (7.4-10.4); Platelet Count 296 10^3/uL (150-450); Red Blood Count 4.58 10^6 /uL (3.70-4.87); Red Cell Distribution Width 17 % (10-15); White Blood Count 6.8 10^3/uL (3.5-10.8)
[2022-08-09 20:12] LABS: INR 1.19 (0.88-1.18)
[2022-08-09] MEDS ORDERED: Magnesium Sulfate 2 gm BAG 2 GM/50 ML BAG IVPB ONE (20:21)
[2022-08-09] MEDS ORDERED: Lactated Ringers 1000 ml BAG 1,000 ML IV ONE (20:21)
[2022-08-09] MEDS ORDERED: Iodixanol (CONTRAST) 320 MG/ML 100 ML SDV IV ONE (20:22)
[2022-08-09 20:57] LABS: Albumin 3.8 g/dL (3.2-5.2); Albumin/Globulin Ratio 1.5 (1-3); Creatinine, Serum 1.16 mg/dL (0.51-0.95); Globulin 2.5 g/dL (2-4); HDL Cholesterol 52.2 mg/dL; Magnesium 1.8 mg/dL (1.9-2.7); Phosphorus 2.6 mg/dL (2.5-5.0); Potassium 4.7 mmol/L (3.5-5.0); Total Bilirubin 0.4 mg/dL (0.2-1.0); Total Protein 6.3 g/dL (6.4-8.9); eGFR CKD-EPI 58.5 (>60)
[2022-08-09 21:11] LABS: TSH Ultra Thyroid Stim Horm 1.76 mcIU/mL (0.34-5.60)
[2022-08-09 22:55] LABS: Urine Appearance Cloudy; Urine Bilirubin Negative (Negative); Urine Blood Negative (Negative); Urine Color Straw; Urine Glucose Negative (Negative); Urine Ketones Negative (Negative); Urine Nitrite Negative (Negative); Urine Protein Negative (Negative); Urine Specific Gravity 1.044 (1.002-1.030); Urine Urobilinogen Negative (Negative)
[2022-08-09] MEDS ORDERED: Senna TAB 8.6 mg TAB PO PRN (23:42)
[2022-08-09] MEDS ORDERED: Polyethylene Glycol 3350 17 GM PACKET PO PRN (23:42)
[2022-08-10] MEDS ORDERED: Acetaminophen IV 1 GM/100ML 1,000 MG/100 ML BAG IV PRN (03:51)
[2022-08-10] MEDS: NS 0.9% 1000 ml BAG 1,000 ML IV SCH ×3 (03:53→23:57)
[2022-08-10] MEDS: Acetaminophen IV 1 GM/100ML 1,000 MG/100 ML BAG IV PRN ×2 (04:29→20:29)
[2022-08-10 06:58] LABS: ABS Eosinophils 0.1 10^3/ul (0-0.6); ABS Lymphocytes 2.1 10^3/ul (1.0-4.8); ABS Monocytes 0.7 10^3/ul (0-0.8); ABS Neutrophils 4.1 10^3/ul (1.5-7.7); Eosinophil % 1.5 %; Hematocrit 33 % (35-47); Hemoglobin 10.4 g/dL (12.0-16.0); Lymphocyte % 29.9 %; Mean Corpuscular HGB Conc 32 g/dL (31-36); Mean Corpuscular Hemoglobin 23 pg (27-31); Mean Corpuscular Volume 74 fL (80-97); Mean Platelet Volume 7.9 fL (7.4-10.4); Nucleated Red Blood Cells % 0.1; Platelet Count 286 10^3/uL (150-450); Red Blood Count 4.47 10^6 /uL (3.70-4.87); Red Cell Distribution Width 17 % (10-15)
[2022-08-10 07:16] LABS: Calcium 8.9 mg/dL (8.6-10.3); Creatinine, Serum 0.89 mg/dL (0.51-0.95); Magnesium 2.2 mg/dL (1.9-2.7); eGFR CKD-EPI 80.4 (>60)
[2022-08-10] MEDS: Enoxaparin 40 MG/0.4 ML SYR SUBCUT SCH (13:55)
[2022-08-11 07:03] LABS: ABS Eosinophils 0.2 10^3/ul (0-0.6); ABS Lymphocytes 1.8 10^3/ul (1.0-4.8); ABS Monocytes 0.5 10^3/ul (0-0.8); ABS Neutrophils 2.7 10^3/ul (1.5-7.7); Eosinophil % 3.5 %; Hematocrit 30 % (35-47); Hemoglobin 9.9 g/dL (12.0-16.0); Lymphocyte % 34.1 %; Mean Corpuscular HGB Conc 33 g/dL (31-36); Mean Corpuscular Hemoglobin 25 pg (27-31); Mean Corpuscular Volume 74 fL (80-97); Mean Platelet Volume 8.2 fL (7.4-10.4); Nucleated Red Blood Cells % 0.1; Platelet Count 250 10^3/uL (150-450); Red Blood Count 4.06 10^6 /uL (3.70-4.87); Red Cell Distribution Width 17 % (10-15); White Blood Count 5.1 10^3/uL (3.5-10.8)
[2022-08-11 07:21] LABS: Calcium 8.3 mg/dL (8.6-10.3); Creatinine, Serum 0.88 mg/dL (0.51-0.95); Magnesium 1.8 mg/dL (1.9-2.7); Potassium 4.2 mmol/L (3.5-5.0); eGFR CKD-EPI 81.5 (>60)
[2022-08-11] MEDS: NS 0.9% 1000 ml BAG 1,000 ML IV SCH (09:44)
[2022-08-11] MEDS: Acetaminophen IV 1 GM/100ML 1,000 MG/100 ML BAG IV PRN (09:45)
[2022-08-11] MEDS: Enoxaparin 40 MG/0.4 ML SYR SUBCUT SCH (12:09)
[2022-08-11] MEDS ORDERED: Gadoteridol (CONTRAST) 279.3 MG/ML 10 ML IV ONE (13:27)
[2022-08-11] MEDS ORDERED: Acetaminophen IV 1 GM/100ML 1,000 MG/100 ML BAG IV PRN (21:10)
[2022-08-12 07:10] LABS: Calcium 9.1 mg/dL (8.6-10.3); Creatinine, Serum 0.89 mg/dL (0.51-0.95); Potassium 4.1 mmol/L (3.5-5.0); eGFR CKD-EPI 80.4 (>60)
[2022-08-12] MEDS: Enoxaparin 40 MG/0.4 ML SYR SUBCUT SCH (11:11)
[2022-08-12 17:23] LABS: Phospholipid Ab IgG < 9.4 GPL; Phospholipid Ab IgM, S < 9.4 MPL
[2022-08-12 18:43] VITALS: BP 113/69
[2022-08-13 17:17] LABS: Phospholipid (Cardiolipin) IgA < 9.4 APL
== END 2022-08-12 15:40 | disposition home or self-care (01) | DRG 54 ==
LOC: ED 18:54 → EDHOLD 18:54 → SUATTDRO 23:42 → MEDTELE 08-10 02:30
PROVIDERS: ADMIT Internal Medicine; ATTEND Internal Medicine